=== PATIENT | male | born 1960 | race Hispanic/Latino ===

== ENCOUNTER 2017-07-08 14:34 | Emergency (ER) | payer MEDICARE ==
[2017-07-08] MEDS ORDERED: ASPIRIN PO ONE (15:09)
[2017-07-08 15:23] LABS: Basophils % (Auto) 0.6 % (0.0-1.8); Eosinophils # (Auto) 0.2 K/mm3 (0.0-0.4); Eosinophils % (Auto) 3.1 % (0.0-4.3); Hematocrit 29.5 % (35.5-45.6); Hemoglobin 9.3 gm/dl (11.8-15.2); Lymphocytes # (Auto) 1.1 K/mm3 (1.2-5.4); Lymphocytes % (Auto) 15.5 % (13.4-35.0); Mean Corpuscular HGB Conc 32 % (32-34); Monocytes # (Auto) 0.6 K/mm3 (0.0-0.8); Monocytes % (Auto) 8.3 % (0.0-7.3); Platelet Count 272 K/mm3 (140-440); Red Blood Count 4.52 M/mm3 (3.65-5.03)
[2017-07-08 15:39] LABS: Mean Corpuscular Hemoglobin 21 pg (28-32); Mean Corpuscular Volume 65 fl (84-94); Red Cell Distribution Width 20.9 % (13.2-15.2)
[2017-07-08 15:40] LABS: BUN/Creatinine Ratio 11; Blood Urea Nitrogen 8 mg/dL (9-20); Calcium 8.2 mg/dL (8.4-10.2); Hemolysis Index 5
--- NOTE | 2017-07-08 22:42 | Emergency Department Report ---
<DESHAUN HILARIO - Last Filed: 07/08/17 22:38> ED General Adult HPI - General Chief complaint: Chest Pain Stated complaint: CHEST PAIN/PSYCHE Time Seen by Provider: 07/08/17 22:22 Source: patient Mode of arrival: Ambulatory Limitations: No Limitations - History of Present Illness Initial comments: Patient is a 56-year-old male who is here for anxiety type symptoms. Patient states that he is originally from [place] and was getting large amounts of narcotics for back pain. Since the patient been here he has been given significantly lower doses. Patient has been treated for chronic neck pain. Patient states that since he has been in [place] and he has been able to get the same dose of narcotics for his back as he used to he has been lying narcotics on the street. Patient states that he would like to get help for his addiction. Patient states he is having large amounts of anxiety and he has a history of one stent and because of the stent and his anxiety is getting chest pain. Patient states he has some shortness of breath also. Patient states the chest pain has been present constantly for approximately 1 week. Patient also states he's had a mild cough as well and he was recently treated with a Z-Polo however was Z-Polo finished he started having pain in the cough again Severity scale (0 -10): 0 - Related Data Allergies Allergy/AdvReac Type Severity Reaction Status Date / Time Iodinated Contrast- Oral and Allergy Hives Verified 07/08/17 14:54 IV Dye ketorolac [From Toradol] Allergy Hives Verified 07/08/17 14:54 ED Review of Systems ROS: Stated complaint: CHEST PAIN/PSYCHE Other details as noted in HPI Comment: All other systems reviewed and negative ED Past Medical Hx - Past Medical History Previous Medical History?: Yes Hx Psychiatric Treatment: Yes (depression) Additional medical history: gastric bypass - Surgical History Hx Coronary Stent: Yes - Social History Smoking Status: Never Smoker Substance Use Type: None ED Physical Exam - General Limitations: No Limitations General appearance: alert, in no apparent distress - Head Head exam: Present: atraumatic, normocephalic - Eye Eye exam: Present: normal appearance - ENT ENT exam: Present: mucous membranes moist - Neck Neck exam: Present: normal inspection - Respiratory Respiratory exam: Present: normal lung sounds bilaterally. Absent: respiratory distress, wheezes, rales, rhonchi - Cardiovascular Cardiovascular Exam: Present: regular rate, normal rhythm. Absent: systolic murmur, diastolic murmur, rubs, gallop - GI/Abdominal GI/Abdominal exam: Present: soft, normal bowel sounds. Absent: distended, tenderness, guarding, rebound - Rectal Rectal exam: Present: deferred - Extremities Exam Extremities exam: Present: normal inspection - Back Exam Back exam: Present: normal inspection - Neurological Exam Neurological exam: Present: alert, oriented X3 - Psychiatric Psychiatric exam: Present: normal affect, normal mood - Skin Skin exam: Present: warm, dry, intact, normal color. Absent: rash ED Course Vital Signs 07/08/17 07/09/17 07/09/17 15:01 12:28 19:20 Temperature 98.7 F 98 F 97.8 F Pulse Rate 87 77 76 Respiratory 16 16 12 Rate Blood Pressure 120/69 Blood Pressure 122/81 106/72 [Right] O2 Sat by Pulse 96 97 97 Oximetry 07/09/17 07/10/17 20:49 08:00 Temperature 97.5 F L Pulse Rate 81 Respiratory 16 18 Rate Blood Pressure Blood Pressure 122/81 [Right] O2 Sat by Pulse 100 Oximetry ED Medical Decision Making - Lab Data Result diagrams: 07/08/17 15:12 07/08/17 15:12 - EKG Data -: EKG Interpreted by [place] - EKG Data Interpretation: other (patient's EKG shows sinus rhythm with a rate of 89 normal axis normal intervals there's a right bundle-branch block present has no ST segment elevations or depressions.) Critical care attestation.: If time is entered above; I have spent that time in minutes in the direct care of this critically ill patient, excluding procedure time. ED Disposition Clinical Impression: Chest pain, Anxiety, Opiate addiction Disposition: DC-01 TO HOME OR SELFCARE Condition: Stable Instructions: Chest Pain (ED), Anxiety (ED) Additional Instructions: Patient to follow-up with primary care in 3-5 days. Patient to go to [facility] for further evaluation and treatment. Patient to return to ER if condition worsens. Patient to increase water. The patient take all medicines as directed. Referrals: MARCK HIGUERA MD [Primary Care Provider] - 3-5 Days <COREY HEALY III - Last Filed: 07/10/17 17:21> ED Course - Reevaluation(s) Reevaluation #1: Patient is a 56-year-old male that presents to the emergency room for chest pain , anxiety and help for opiate addiction. All labs and diagnostics reviewed and discussed with patient. Patient has been cleared by [facility] for outpatient rehabilitation. Patient has been accepted to [facility] for opiate rehabilitation. Patient is medically cleared. Patient has had enzymes 3 and EKGs have remained normal. Patient will be discharged home in order to go by POV to [facility]. At this time patient denies suicidal and homicidal ideations. At this time patient denies chest pain and anxiety. 07/10/17 16:38 ED Medical Decision Making - Lab Data Result diagrams: 07/08/17 15:12 07/08/17 15:12 ED Disposition Is pt being admited?: No Does the pt Need Aspirin: No Time of Disposition: 16:40
[2017-07-08] MEDS: ATIVAN PO PRN (23:11)
--- NOTE | 2017-07-08 23:46 | XRay Report ---
FINAL REPORT EXAM: XR CHEST 1V AP HISTORY: cp, cough TECHNIQUE: AP portable view of the chest. PRIORS: None. FINDINGS: The cardiomediastinal silhouette appears normal. The lungs are clear. The bones and soft tissues are unremarkable. IMPRESSION: No evidence of acute cardiopulmonary disease.
[2017-07-09] MEDS ORDERED: ATIVAN ONE (01:32)
[2017-07-09 10:12] LABS: Amphetamine Screen,Urine PRESUMPTIVE NEGATIVE; Benzodiazepines Screen,Urine PRESUMPTIVE NEGATIVE; Cannabinoid Screen,Urine PRESUMPTIVE NEGATIVE; Methadone Screen,Urine PRESUMPTIVE NEGATIVE; Opiate Screen,Urine PRESUMPTIVE NEGATIVE
[2017-07-09 10:50] LABS: Cocaine Screen,Urine PRESUMPTIVE POSITIVE
[2017-07-09] MEDS: ATIVAN PO PRN ×2 (12:20→21:33)
[2017-07-09] MEDS ORDERED: ROBITUSSIN PO ONE (19:17)
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
[2017-07-09] MEDS ORDERED: TYLENOL PO ONE (20:23)
[2017-07-10] MEDS ORDERED: PROzac PO SCH (10:00)
[2017-07-10 10:59] LABS: Bilirubin,Urine NEG (Negative); Blood,Urine NEG (Negative); Color,Urine Yellow (Yellow); Mucus,Urine FEW /HPF; Protein,Urine <15 mg/dL mg/dL (Negative)
[2017-07-10] MEDS: ATIVAN PO PRN (13:42)
[2017-07-10 17:36] VITALS: BP 109/69
== END 2017-07-10 17:34 | disposition home or self-care (01) ==
LOC: ED 14:34
DX: R07.89 Other chest pain (principal); F41.9 Anxiety disorder, unspecified; F11.10 Opioid abuse, uncomplicated; F32.9 Major depressive disorder, single episode, unspecified; Z98.84 Bariatric surgery status
CPT/HCPCS: 36415; 71045; 80048; 80307; 81001; 84484; 85025; 87086; 93005; 93010; 99284; G0480; 80320; J2060

== ENCOUNTER 2017-10-09 09:30 | Emergency (ER) | payer MEDICAID, MEDICARE ==
[2017-10-09] MEDS ORDERED: ASPIRIN PO ONE (09:44)
[2017-10-09 10:58] LABS: Basophils % (Auto) 0.8 % (0.0-1.8); Eosinophils # (Auto) 0.4 K/mm3 (0.0-0.4); Eosinophils % (Auto) 5.8 % (0.0-4.3); Hematocrit 32.3 % (35.5-45.6); Hemoglobin 10.2 gm/dl (11.8-15.2); Lymphocytes # (Auto) 0.8 K/mm3 (1.2-5.4); Lymphocytes % (Auto) 13.6 % (13.4-35.0); Mean Corpuscular HGB Conc 32 % (32-34); Monocytes # (Auto) 0.6 K/mm3 (0.0-0.8); Monocytes % (Auto) 9.2 % (0.0-7.3); Platelet Count 223 K/mm3 (140-440); Red Blood Count 5.01 M/mm3 (3.65-5.03); Red Cell Distribution Width 19.9 % (13.2-15.2)
[2017-10-09 11:23] LABS: BUN/Creatinine Ratio 10; Blood Urea Nitrogen 7 mg/dL (9-20); Hemolysis Index 1; Mean Corpuscular Hemoglobin 20 pg (28-32); Mean Corpuscular Volume 64 fl (84-94)
--- NOTE | 2017-10-09 14:50 | XRay Report ---
FINAL REPORT PROCEDURE: XR CHEST ROUTINE 2V TECHNIQUE: PA and lateral chest radiographs were obtained. CPT 48274 HISTORY: cough, SOB, CP COMPARISON: No prior studies are available for comparison. FINDINGS: Heart: Normal. Mediastinum/Vessels: Normal. Lungs/Pleural space: No infiltrate, effusion, or pneumothorax. Bony thorax: No acute osseous abnormality. Other: IMPRESSION: No radiographic evidence of acute abnormality.
--- NOTE | 2017-10-09 19:37 | Emergency Department Report ---
ED Chest Pain HPI - General Chief Complaint: Chest Pain Stated Complaint: CHEST PAIN Time Seen by Provider: 10/09/17 19:36 Source: patient Mode of arrival: Ambulatory Limitations: No Limitations - History of Present Illness Initial Comments: Patient is 57 years old male with history of polysubstance abuse. Patient presented to the ER complaining of left-sided chest pain that he started today while he was heading to a drug rehabilitation. Patient stated that he also been having cough with yellowish sputum. Patient denied any fever. Patient admitted to using cocaine and meth yesterday. MD Complaint: chest pain Pain Location: left chest Quality: sharp Consistency: intermittent - Related Data Allergies Allergy/AdvReac Type Severity Reaction Status Date / Time Iodinated Contrast- Oral and Allergy Hives Verified 10/09/17 09:40 IV Dye ketorolac [From Toradol] Allergy Hives Verified 10/09/17 09:40 Heart Score - HEART Score History: Slightly suspicious EKG: Non-specific Age: 45-65 Risk factors: 1-2 risk factors Troponin: < normal limit HEART Score: 3 - Critical Actions Critical Actions: 0-3 pts:0.9-1.7%risk of adverse cardiac event.Candidate for discharge ED Review of Systems ROS: Stated complaint: CHEST PAIN Other details as noted in HPI Comment: All other systems reviewed and negative Constitutional: denies: chills, fever Respiratory: cough. denies: orthopnea, shortness of breath, SOB with exertion, SOB at rest, wheezing Cardiovascular: chest pain. denies: palpitations, dyspnea on exertion, orthopnea Gastrointestinal: denies: abdominal pain, nausea, vomiting, diarrhea, constipation, hematemesis, melena, hematochezia ED Past Medical Hx - Past Medical History Hx Psychiatric Treatment: Yes (depression) Additional medical history: gastric bypass - Surgical History Hx Coronary Stent: Yes - Social History Smoking Status: Never Smoker Substance Use Type: Cocaine, Methamphetamines ED Physical Exam - General Limitations: No Limitations General appearance: alert, in no apparent distress - Head Head exam: Present: atraumatic, normocephalic, normal inspection - Eye Eye exam: Present: normal appearance, PERRL - ENT ENT exam: Present: normal exam, normal orophraynx, mucous membranes moist - Neck Neck exam: Present: normal inspection, full ROM. Absent: tenderness, meningismus, lymphadenopathy, thyromegaly - Respiratory Respiratory exam: Present: normal lung sounds bilaterally. Absent: respiratory distress, wheezes, rales, rhonchi, stridor, chest wall tenderness, accessory muscle use, decreased breath sounds, prolonged expiratory - Cardiovascular Cardiovascular Exam: Present: regular rate, normal rhythm, normal heart sounds - GI/Abdominal GI/Abdominal exam: Present: soft, normal bowel sounds. Absent: distended, tenderness, guarding, rebound, rigid, organomegaly, mass, bruit, pulsatile mass - Extremities Exam Extremities exam: Present: normal inspection, full ROM, normal capillary refill - Back Exam Back exam: Present: normal inspection, full ROM. Absent: tenderness, CVA tenderness (R), CVA tenderness (L), muscle spasm, paraspinal tenderness, vertebral tenderness, rash noted - Neurological Exam Neurological exam: Present: alert, oriented X3, CN II-XII intact, normal gait, reflexes normal - Skin Skin exam: Present: warm, intact, normal color ED Course Vital Signs 10/09/17 10/09/17 09:40 19:45 Temperature 98.4 F 98 F Pulse Rate 86 78 Respiratory 18 12 Rate Blood Pressure 135/78 Blood Pressure 127/78 [Left] O2 Sat by Pulse 98 99 Oximetry - Reevaluation(s) Reevaluation #1: 10/09/17 23:27 Patient stated that he is very depressed and he is thinking about killing himself. Patient stated that he thinking about overdosing on medication. Patient denied any homicidal ideation. No visual or auditory hallucination. ED Medical Decision Making - Lab Data Result diagrams: 10/09/17 10:10 10/09/17 10:10 - EKG Data -: EKG Interpreted by [place] EKG shows normal: sinus rhythm Rate: normal - EKG Data Interpretation: no acute changes - Radiology Data Radiology results: report reviewed Referring Physician: ED DOC Patient Name: JORGE DOMINGO Date of : 1960 Sex: Male Report Date: 2017-10-09 Report Status: Finalized Findings [facility] [address] [place] [address] XRay Report Signed Patient: JORGE DOMINGO MR#: [id number] : 1960 Acct:[id number] Age/Sex: 57 / M ADM Date: 10/09/17 Loc: ED Attending Dr: Ordering Physician: INESSA GALAN MD Date of Service: 10/09/17 Procedure(s): XR chest routine 2V Accession Number(s): [id number] cc: INESSA GALAN MD Fluoro Time In Minutes: FINAL REPORT PROCEDURE: XR CHEST ROUTINE 2V TECHNIQUE: PA and lateral chest radiographs were obtained. CPT 51895 HISTORY: cough, SOB, CP COMPARISON: No prior studies are available for comparison. FINDINGS: Heart: Normal. Mediastinum/Vessels: Normal. Lungs/Pleural space: No infiltrate, effusion, or pneumothorax. Bony thorax: No acute osseous abnormality. Other: IMPRESSION: No radiographic evidence of acute abnormality. Transcribed By: [facility] Dictated By: WILMAR CHRISTOPHER M.D. Electronically Authenticated By: WILMAR CHRISTOPHER M.D. Signed Date/Time: 10/09/171445 DD/ 45 TD/TT: 10/09/171445 - Medical Decision Making Patient stated that his chest pain is gone. Patient's symptoms is consistent with acute bronchitis. Chest x-ray is negative for pneumonia. Patient has 3 sets of troponin which all came back negative. Critical care attestation.: If time is entered above; I have spent that time in minutes in the direct care of this critically ill patient, excluding procedure time. ED Disposition Clinical Impression: Chest pain, Depression, Suicidal ideation Disposition: DC/TX-65 PSY HOSP/PSY UNIT Is pt being admited?: No Condition: Stable Instructions: Chest Pain (ED) Referrals: PRIMARY CAREMD [Primary Care Provider] - 3-5 Days
[2017-10-10 00:54] VITALS: BP 117/78
[2017-10-10] MEDS ORDERED: GUAIFENESIN DM SYRUP PO ONE (01:09)
[2017-10-10] MEDS ORDERED: TYLENOL PO ONE (08:22)
--- NOTE | 2017-10-10 15:36 | Consultation ---
History of Present Illness - Reason for Consult Consult date: 10/10/17 Reason for consult: Mental Health Evaluation Requesting physician: MELLY RODRIGUEZ - Chief Complaint Chief complaint: "I want a better life without drugs" - History of Present Psychiatric Illness 57 years old male with history of polysubstance abuse. The patient presented to the ER complaining of left-sided chest pain. Psychiatry was consulted because the patient stated that he was suicidal. Today the patient is calm and cooperative during the assessment. The patient stated that he take Prozac for depression. He stated that his "main issue" is using "drugs." He stated that his drug of choice is cocaine. He stated that his depression is exacerbated when he uses drugs. He stated using drugs for several years with multiple rehab services. He stated that he don't trust himself when it comes to his drug use. He rate his depression 7/10 with 10 being the worse. He would not confirm or deny SI's. He denies HI's and AVH's. He denies erratic sleep and a poor appetite. He denies any manic episodes in the past. He stated that he used cocaine 2 days ago. He denies alcohol consumption (etoh). Medications and Allergies Allergies Allergy/AdvReac Type Severity Reaction Status Date / Time Iodinated Contrast- Oral and Allergy Hives Verified 10/09/17 09:40 IV Dye ketorolac [From Toradol] Allergy Hives Verified 10/09/17 09:40 Home Medications Medication Instructions Recorded Confirmed Last Taken Type Cyclobenzaprine [Flexeril] 10 mg PO QDAY PRN 10/10/17 10/10/17 Unknown History FLUoxetine [PROzac] 60 mg PO QAM 10/10/17 10/10/17 Unknown History Gabapentin [Neurontin] 400 mg PO TID 10/10/17 10/10/17 Unknown History Hydroxyzine HCl 25 mg PO QID 10/10/17 10/10/17 Unknown History Methylphenidate HCl [Concerta] 54 mg PO QAM 10/10/17 10/10/17 Unknown History Morphine Sulfate [Morphine Sulfate 30 mg PO QDAY 10/10/17 10/10/17 Unknown History ER] Oxycodone HCl/Acetaminophen 1 each PO TID 10/10/17 10/10/17 Unknown History [Percocet 10/325 mg] QUEtiapine [SEROquel] 200 mg PO QHS 10/10/17 10/10/17 Unknown History Past psychiatric history - Past Medical History Past Medical History: other (Gastric Bypass) Past Surgical History: Other (Coronary Stents placed) - past Psychiatric treatment and history Psych: Depression psychiatric treatment history: Several inpatient psy services for substance abuse and depression. Denies a fam psy hx. - Social History Social history: Lives alone Mental Status Exam - Vital signs Last Vital Signs Temp 98 F 10/09/17 23:28 Pulse 81 10/09/17 23:28 Resp 16 10/10/17 08:43 BP 117/78 10/09/17 23:28 Pulse Ox 98 10/09/17 23:28 - Exam Narrative exam: MSE: Appearance: calm, cooperative Behavior: regular eye contact Speech: regular rate and tone Mood: "depressed" Affect: congruent to mood Thought Process: linear Thought Content: denies HI's and AVH's, he cannot confirm or deny SI's Motor Activity: ambulatory Cognition: A/O x 3 Insight: fair Judgment: variable Results Result Diagrams: 10/09/17 10:10 10/09/17 10:10 Abnormal lab results 10/09/17 Range/Units 19:45 D-Dimer 247.64 H (0-234) ng/mlDDU All other labs normal. Assessment and Plan Assessment and plan: Impression: Hx of Depression and Substance Abuse. Today the patient is calm and cooperative during the assessment. UDS/UA not collected. The patient will not confirm or deny SI's. Recommendation/Plan: Continue 1013 with placement to [facility] today.
[2017-10-10 16:42] LABS: Bacteria,Urine 1+ /HPF (Negative); Bilirubin,Urine NEG (Negative); Blood,Urine NEG (Negative); Color,Urine Yellow (Yellow); Mucus,Urine FEW /HPF; Protein,Urine <15 mg/dL mg/dL (Negative); RBC,Urine < 1.0 /HPF (0.0-6.0); WBC,Urine < 1.0 /HPF (0.0-6.0)
[2017-10-10 16:47] LABS: Benzodiazepines Screen,Urine PRESUMPTIVE NEGATIVE; Cannabinoid Screen,Urine PRESUMPTIVE NEGATIVE; Methadone Screen,Urine PRESUMPTIVE NEGATIVE
[2017-10-10 16:59] LABS: Amphetamine Screen,Urine PRESUMPTIVE POSITIVE; Cocaine Screen,Urine PRESUMPTIVE POSITIVE; Opiate Screen,Urine PRESUMPTIVE POSITIVE
== END 2017-10-10 16:30 ==
LOC: ED 09:30
DX: R07.89 Other chest pain (principal); F32.9 Major depressive disorder, single episode, unspecified; F14.10 Cocaine abuse, uncomplicated; F15.10 Other stimulant abuse, uncomplicated; Z95.1 Presence of aortocoronary bypass graft; Z88.6 Allergy status to analgesic agent; Z91.041 Radiographic dye allergy status
CPT/HCPCS: 36415; 71046; 80048; 80307; 81001; 83690; 84484; 85025; 85379; 93005; 93010; 99285